=== PATIENT | female | born 1935 | race Caucasian/White ===

== ENCOUNTER → 2022-02-28 14:04 | Outpatient (POV) | payer SELFPAY | PROVIDERS: Visit Provider Internal Medicine Nephrology | DX: Z00.00 Encounter for general adult medical examination without abnormal findings (principal) ==

== ENCOUNTER → 2022-05-30 13:02 | Outpatient (POV) | payer MEDICARE, MEDICAID, SELFPAY ==
[2022-05-30 13:56] LABS: Microscopic, Urine URINE MICROSCOPIC (MICROSCOPIC)
[2022-05-30 14:25] LABS: Hematocrit 36.2 % (37.0-47.0); Hemoglobin 11.2 g/dL (12.2-16.2); Mean Corpuscular HGB Conc 30.9 g/dL (31.8-35.4); Mean Corpuscular Hemoglobin 32.1 pg (27.0-31.2); Mean Corpuscular Volume 103.9 fl (81-99); Platelet Count 220 K/mm3 (142-424); Red Blood Count 3.48 M/mm3 (4.20-5.40); Red Cell Distribution Width 14.8 % (11.5-17.5)
[2022-05-30 14:41] LABS: Chloride 103 mmol/L (98-107); Potassium 4.7 mmoL/L (3.5-5.1); Sodium 142 mmol/L (136-145)
[2022-05-30 14:44] LABS: Anion Gap 12.7 mEq/L (5-15); Blood Urea Nitrogen 38 mg/dl (7-17); Calcium 9.4 mg/dl (8.4-10.2); Carbon Dioxide 31 mmol/L (22.0-30.0); Estimated Glomerular Filt Rate 33 ml/min (>60); GFR (African American) 40 ML/MIN (>60); Glucose 118 mg/dl (74-100); Phosphorous 3.8 mg/dl (2.5-4.5)
[2022-05-30 15:21] LABS: Appearance,Urine CLEAR (Clear); Bilirubin,Urine Negative (Negative); Blood, Urine Negative (Negative); Color,Urine YELLOW (Yellow); Glucose,Urine (UA) Negative (Negative); Ketones,Urine Negative (Negative); Leukocyte Esterase,Urine Negative (Negative); Nitrate,Urine Negative (Negative); Protein,Urine Negative (Negative); Urobilinogen,Urine 0.2 EU/dl (0.2)
[2022-05-30 15:30] LABS: Creatinine,Urine Random 60 mg/dL (Not Estab.)
[2022-05-30 15:35] LABS: Bacteria,Urine 2+ /lpf; Squamous Epithelial Cell,Urine Occasional #/hpf (0-5); WBC,Urine Occasional #/hpf (0-3)
== END ==
PROVIDERS: Visit Provider Internal Medicine Nephrology
DX: N18.32 Chronic kidney disease, stage 3b (principal); B96.29 Other Escherichia coli [E. coli] as the cause of diseases classified elsewhere; R82.90 Unspecified abnormal findings in urine
CPT/HCPCS: 36415; 80069; 81001; 82570; 84155; 85007; 85014; 85018; 85048; 85049; 87086; 87088; 87186

== ENCOUNTER → 2023-02-03 16:45 | Outpatient (POV) | payer MEDICARE, MEDICAID, SELFPAY | PROVIDERS: Visit Provider Internal Medicine Nephrology | DX: Z00.00 Encounter for general adult medical examination without abnormal findings (principal) ==

== ENCOUNTER → 2023-05-01 12:22 | Outpatient (POV) | payer MEDICARE, MEDICAID, SELFPAY | PROVIDERS: Visit Provider Internal Medicine Nephrology | DX: Z00.00 Encounter for general adult medical examination without abnormal findings (principal) ==

== ENCOUNTER 2024-01-05 14:06 | Outpatient (POV) | payer MEDICARE, MEDICAID, SELFPAY ==
--- OUTSIDE RECORDS SUMMARY | 2024-01-05 14:42 | XMS_ITS | Continuity of Care Document ---
Author Name Unknown Address [address] [place] [address] [phone] Organization [facility] Phone Care Team Providers Care Merchandise Shopper Name Role Phone ED RILEY Primary Care FORD POSADA Primary Attending FORD POSADA Unavailable FORD POSADA Admitting ALLERGIES AND ADVERSE REACTIONS ALLERGIES AND ADVERSE REACTIONS Code System Allergy Substance Adverse Reaction Date Reaction (Severity) Comment Status Reported By [place] [id number] SNOMED CT PENICILLINS Adverse reaction to substance Not Specified active [id number] on June 30, 2023 7:33:05 PM [facility] 2670 RXNorm CODEINE Adverse reaction to substance Not Specified active [id number] on June 30, 2023 7:33:05 PM [facility] FAMILY HISTORY RELATION: Father Status: Cause of : Myocardial disease Age at : 50 SNOMED-CT Diagnosis Age At Onset Information not available RELATION: Mother Status: Cause of : Intracranial tumor Age at : 81 SNOMED-CT Diagnosis Age At Onset Information not available RESULTS Patient: DEBI CARTER Date of : [birth year] LABORATORY RESULTS ORDER 200: CBC AUTO NO DIFF HEMOGRAM (LOINC: 43905-2) ORDER DATE: January 01, 2024 3:04:00 PM [facility] Specimen Source: Whole Blood Specimen Type: Whole blood s ample PERFORMING LAB: [address] [id number] Result Comment: Final Result Date: January 01, 2024 3:28:00 PM [facility] (TECH: HC) LOINC TEST FLAG RESULT REFERENCE RANGE UPDA ELIO BY 6690-2 Leukocytes [#/volume] in Blood by Automated count N 9.1 10^3/uL 4.5 10^3/uL - 11.5 10^3/uL January 01, 2024 3:28:00 PM UTC (TECH: [employer]) 789-8 Erythrocytes [#/volume] in Blood by Automated count L 2.83 10^6/uL 4.25 10^6/uL - 5.57 10^6/uL January 01, 2024 3:28:00 PM UTC (TECH: [employer]) 718-7 Hemoglobin [Mass/volume] in Blood LL 7.1 g/dL 12.0 g/dL - 15.7 g/dL January 01, 2024 3:28:00 PM UTC (TECH: [employer]) 82360-8 Hematocrit [Volume Fraction] of Blood LL 24.2 % 36.0 % - 47.0 % January 01, 2024 3:28:00 PM UTC (TECH: [employer]) 787-2 Erythrocyte mean corpuscular volume [Entitic volume] by Automated count N 85.5 fl 80 fl - 95 fl January 01, 2024 3:28:00 PM UTC (Sudiksha: VenJuvo) 56670-2 Erythrocyte mean corpuscular hemoglobin [Entitic mass] in Blood from Fetus by Automated count L 25.1 pg 27.0 pg - 34.0 pg January 01, 2024 3:28:00 PM UTC (Sudiksha: Ven[employer]) 42311-1 Erythrocyte mean corpuscular hemoglobin concentration [Mass/volume] in Blood from Fetus by Automated count L 29.3 g/dL 32.0 g/dL - 36.0 g/dL January 01, 2024 3:28:00 PM UTC (TECH: [employer]) 58376-7 Platelets [#/volume] in Blood N 276 10^3/uL 150 10^3/uL - 450 10^3/uL January 01, 2024 3:28:00 PM UTC (Sudiksha: VenJuvo) 73398-7 Erythrocyte distribution width [Ratio] H 19.4 % 12.3 % - 15.1 % January 01, 2024 3:28:00 PM UTC (TECH: VenJuvo) 38601-3 Platelet mean volume [Entitic volume] in Blood by Automated count N 10.2 fl 7.4 fl - 10.4 fl January 01, 2024 3:28:00 PM UTC (TECH: VenJuvo) ORDER 300: VITAMIN D3 25-OH (LOINC: 1988-10) ORDER DATE: January 01, 2024 3:04:00 PM UTC Specimen Source: Serum/Plasm a Specimen Type: Acellular blo od (serum or plasma) specimen PERFORMING LAB: [address] [id number] Result Comment: January 02, 2024 3:14:00 PM UTC Vitamin D deficiency has been defined by the [place] of Result Comment: January 02, 2024 3:14:00 PM [facility] Medicine and an Endocrine Society practice guideline as a Result Comment: January 02, 2024 3:14:00 PM UTC level of serum 25-OH vitamin D less than 20 ng/mL (1,2). Result Comment: January 02, 2024 3:14:00 PM UTC The Endocrine Society went on to further define vitamin D Result Comment: January 02, 2024 3:14:00 PM UTC insufficiency as a level between 21 and 29 ng/mL (2). Result Comment: January 02, 2024 3:14:00 PM UTC 1. IOM ([place] of Medicine). 2010. Dietary reference Result Comment: January 02, 2024 3:14:00 PM [facility] intakes for calcium and D. [facility]: The Result Comment: January 02, 2024 3:14:00 PM [facility] National [employer]. Result Comment: January 02, 2024 3:14:00 PM UTC 2. Sherrie MF, Karime NC, Keshav SMITH, et al. Result Comment: January 02, 2024 3:14:00 PM UTC Evaluation, treatment, and prevention of vitamin D Result Comment: January 02, 2024 3:14:00 PM UTC deficiency: an Endocrine Society clinical practice Result Comment: January 02, 2024 3:14:00 PM [place] guideline. JCEM. 2010; 96(7):1911-30. Result Comment: January 02, 2024 3:14:00 PM UTC Performed at: [facility] Result Comment: January 02, 2024 3:14:00 PM UTC [address], [place] [id number] Result Comment: January 02, 2024 3:14:00 PM UTC [employer] C[employer]: Syd Pickett PhD, Phone: [phone] Result Comment: January 02, 2024 3:14:00 PM UTC Final Result Date: January 02, 2024 3:05:00 PM UTC (TECH: LAB) LOINC TEST FLAG RESULT REFERENCE RANGE UPDA ELIO BY 1989-3 Calcidiol [Mass/volume] in Serum or Plasma N 78.7 ng/mL 30.0 ng/mL - 100.0 ng/mL January 02, 2024 3:05:00 PM UTC (TECH: LAB) ORDER 400: RENAL FUNCTION PA JOHN (LOINC: 70983-8) ORDER DATE: January 01, 2024 3:04:00 PM [facility] Specimen Source: Serum/Plasm a Specimen Type: Acellular blo od (serum or plasma) specimen PERFORMING LAB: [address] [id number] Result Comment: Final Result Date: January 01, 2024 4:10:00 PM [facility] (TECH: MRB) LOINC TEST FLAG RESULT REFERENCE RANGE UPDA ELIO BY 2951-2 Sodium [Moles/volume] in Serum or Plasma N 143 mmol/L 136 mmol/L - 145 mmol/L January 01, 2024 4:10:00 PM UTC (TECH: MRB) 2823-3 Potassium [Moles/volume] in Serum or Plasma N 4.0 mmol/L 3.5 mmol/L - 5.1 mmol/L January 01, 2024 4:10:00 PM UTC (TECH: MRB) 2075-0 Chloride [Moles/volume] in Serum or Plasma N 105 mmol/L 98 mmol/L - 107 mmol/L January 01, 2024 4:10:00 PM UTC (TECH: MRB) 8-9 Carbon dioxide, total [Moles/volume] in Serum or Plasma N 28 mmol/L 21 mmol/L - 32 mmol/L January 01, 2024 4:10:00 PM UTC (TECH: MRB) 2345-7 Glucose [Mass/volume] in Serum or Plasma N 89 mg/dL 70 mg/dL - 110 mg/dL January 01, 2024 4:10:00 PM UTC (TECH: MRB) 3094-0 Urea nitrogen [Mass/volume] in Serum or Plasma H 37 mg/dL 7 mg/dL - 18 mg/dL January 01, 2024 4:10:00 PM UTC (TECH: MRB) 2160-0 Creatinine [Mass/volume] in Serum or Plasma H 1.6 mg/dL 0.6 mg/dL - 1.0 mg/dL January 01, 2024 4:10:00 PM UTC (TECH: MRB) 39096-4 Glomerular filtration rate/1.73 sq M.predicted by Creatinine-based formula (MDRD) L 32 mL/min >60 January 01, 2024 4:10:00 PM UTC (TECH: MRB) 1751-7 Albumin [Mass/volume] in Serum or Plasma N 3.8 g/dL 3.4 g/dL - 5.0 g/dL January 01, 2024 4:10:00 PM UTC (TECH: MRB) 65816-5 Calcium [Mass/volume] in Serum or Plasma N 9.3 mg/dL 8.5 mg/dL - 10.1 mg/dL January 01, 2024 4:10:00 PM UTC (TECH: MRB) 38008-6 Calcium [Mass/volume] corrected for total protein in Serum or Plasma N 9.5 mg/dL 8.5 mg/dL - 10.1 mg/dL January 01, 2024 4:10:00 PM UTC (TECH: MRB) 2777-1 Phosphate [Mass/volume] in Serum or Plasma N 3.4 mg/dL 2.5 mg/dL - 4.9 mg/dL January 01, 2024 4:10:00 PM UTC (TECH: MRB) ORDER 500: PROTEIN/CREATININ E URINE (LOINC: 2890-2) ORDER DATE: January 01, 2024 3:04:00 PM UTC Specimen Source: URINE Specimen Type: Urine specime n PERFORMING LAB: [address] [id number] Result Comment: Final Result Date: January 01, 2024 3:48:00 PM UTC (TECH: HC) LOINC TEST FLAG RESULT REFERENCE RANGE UPDA ELIO BY 2888-6 Protein [Mass/volume] in Urine N 11 mg/dL 0.0 mg/dL - 15.0 mg/dL January 01, 2024 3:48:00 PM UTC (TECH: HC) 2161-8 Creatinine [Mass/volume] in Urine N 55.2 mg/dL 30 mg/dL - 125 mg/dL January 01, 2024 3:48:00 PM UTC (TECH: HC) 2890-2 Protein/Creatinine [Mass Ratio] in Urine N 199 Ratio 0 Ratio - 200 Ratio January 01, 2024 3:48:00 PM UTC (TECH: HC) ORDER 600: UA AND MICRO/CULT IF INDICATED (LOINC: 55011-2) ORDER DATE: January 01, 2024 3:04:00 PM UTC Specimen Source: URINE Specimen Type: Urine specime n PERFORMING LAB: [address] [id number] Result Comment: Final Result Date: January 01, 2024 3:52:00 PM UTC (TECH: HC) LOINC TEST FLAG RESULT REFERENCE RANGE UPDA ELIO BY 5778-6 Color of Urine N yellow YELLOW December 3:52:00 PM UTC (TECH: HC) 5767-9 Appearance of Urine N clear CLEAR January 01, 2024 3:52:00 PM UTC (TECH: HC) 5792-7 Glucose [Mass/volume] in Urine by Test strip N NORM NORMAL January 01, 2024 3:52:00 PM UTC (TECH: HC) 55550-0 Bilirubin.total [Mass/volume] in Urine by Automated test strip N NEGATIVE NEGATIVE January 01, 2024 3:52:00 PM UTC (TECH: HC) 5797-6 Ketones [Mass/volume] in Urine by Test strip N NEGATIVE NEGATIVE January 01, 2024 3:52:00 PM UTC (TECH: HC) 2965-2 Specific gravity of Urine N 1.010 1.005 - 1.035 January 01, 2024 3:52:00 PM UTC (TECH: HC) 58310-5 Erythrocytes [#/volume] in Urine by Automated test strip N NEGATIVE NEGATIVE January 01, 2024 3:52:00 PM UTC (TECH: HC) 55177-8 pH of Urine by Automated test strip N 5.00 5.0 - 7.5 January 01, 2024 3:52:00 PM UTC (TECH: HC) 47424-3 Protein [Presence] in Urine by Test strip N NEGATIVE NEGATIVE January 01, 2024 3:52:00 PM UTC (TECH: HC) 29022-5 Urobilinogen [Mass/volume] in Urine by Automated test strip N NORM NORMAL January 01, 2024 3:52:00 PM UTC (TECH: HC) 64582-8 Nitrate [Presence] in Urine N NEGATIVE NEGATIVE January 01, 2024 3:52:00 PM UTC (TECH: HC) 56695-0 Leukocytes [#/volume] in Urine by Test strip N 100 (1+) /mcL NEGATIVE January 01, 2024 3:52:00 PM UTC (TECH: HC) 33332-0 Other elements in Urine sediment N CONTAMINATED January 01, 2024 3:52:00 PM UTC (TECH: HC) 88208-3 Microscopic observation [Identifier] in Urine sediment by Light microscopy N YES January 01, 2024 3:52:00 PM UTC (TECH: HC) 63313-4 Erythrocytes [#/area] in Urine sediment by Microscopy high power field N NONE SEEN 0-3 January 01, 2024 3:52:00 PM UTC (TECH: HC) 5821-4 Leukocytes [#/area] in Urine sediment by Microscopy high power field 10-20 NONE SEEN January 01, 2024 3:52:00 PM UTC (TECH: HC) 25227-9 Epithelial cells.squamous [#/area] in Urine sediment by Microscopy high power field 10-20 NONE SEEN January 01, 2024 3:52:00 PM UTC (TECH: HC) 5769-5 Bacteria [#/area] in Urine sediment by Microscopy high power field N TRACE NONE SEEN January 01, 2024 3:52:00 PM UTC (TECH: HC) 05245-9 Mucus [#/area] in Urine sediment by Microscopy low power field N NONE SEEN NONE SEEN January 01, 2024 3:52:00 PM UTC (TECH: HC) 8246-1 Amorphous sediment [Presence] in Urine sediment by Light microscopy N NEGATIVE NONE SEEN January 01, 2024 3:52:00 PM UTC (TECH: HC) ORDER 700: PTH INTACT (LOINC : 2731-8) ORDER DATE: January 01, 2024 3:04:00 PM UTC Specimen Source: Plasma Specimen Type: Plasma specim en PERFORMING LAB: [address] [id number] Result Comment: January 02, 2024 4:11:00 PM UTC Performed at: [facility] Result Comment: January 02, 2024 4:11:00 PM UTC [address], [place] [id number] Result Comment: January 02, 2024 4:11:00 PM [facility] Quartz Cutter: Syd Pickett PhD, Phone: [phone] Result Comment: January 02, 2024 4:11:00 PM [facility] Final Result Date: January 02, 2024 3:05:00 PM [facility] (TECH: LAB) LOINC TEST FLAG RESULT REFERENCE RANGE UPDA ELIO BY 2731-8 Parathyrin.intact [Mass/volume] in Serum or Plasma N 38 pg/mL 15 pg/mL - 65 pg/mL January 02, 2024 3:05:00 PM [facility] (TECH: LAB) LABORATORY NARRATIVE RESULTS Information is not available RADIOLOGY RESULTS Information is not available PATHOLOGY NARRATIVE RESULTS Information is not available MICROBIOLOGY RESULTS No Micro Labs/Results Exist for Patient BLOOD ADMIN RESULTS Information is not available MEDICATIONS HOME MEDICATIONS Status RXNORM NDC Medication Dose Route Frequency Dates Comments Reported By Updated By Drug Treatment Unknown DISCHARGE MEDICATIONS Status RXNORM NDC Medication Dose Route Frequency Dates Comments Physician Updated By No Discharge Medication Info rmation Available INPATIENT MEDICATIONS Status RXNORM NDC Medication Dose Route Frequency Rat e Quantity Dates Comments Physician Updated By No Inpatient Medication Info rmation Available SOCIAL HISTORY SOCIAL HISTORY SNOMED-CT Social History Element Description Effective Dates Offered Cessation Comment UpdatedBy [id number] Historical Tobacco smoking status Former Smoker [id number] on July 01, 2018 6:05:19 PM [facility] [id number] Historical Tobacco smoking status Never Smoked Not Applicable [id number] on September 17, 2015 3:55:48 PM [facility] SOCIAL HISTORY - Gender Sex: Female SOCIAL HISTORY - Status : status i nformation is not available Intention in Next Year: intention information is not available SOCIAL HISTORY - Sexual Behavior Sexual Orientation Gender Identity SNOMED-CT Description SNO MED -CT Description Activity Level No of Partners Partner Type UpdatedBy Information is not available HEALTH CONCERNS Problems Concern Status Health Concern problem infor mation not available. Smoking Status Status Years Used Consumed packs p er day Health Concern smoking histo ry information not available. Family History Concern Status Health Concern family histor y information not available. ENCOUNTERS ENCOUNTER INFORMATION Reason for Visit N18.4 Admission January 01, 2024 2:54:[address] [address] Discharge January 01, 2024 2:54:00 PM [facility] DISCH ARGED TO HOME OR SELF CARE ENCOUNTER DIAGNOSES Notes information is not tamra ilable. Code System Diagnosis Onset Date Diagnosis information is not available. ABSTRACT DIAGNOSES Code System Diagnosis Updated By N18.4 ICD10 CHRONIC KIDNEY D ISEASE, STAGE 4 (SEVERE) [id number] on January 02, 2024 3:01:15 PM UTC N18.4 ICD10 CHRONIC KIDNEY D ISEASE, STAGE 4 (SEVERE) [id number] on January 02, 2024 3:01:18 PM [facility] CARE TEAM Care Merchandise Shopper Role ED RILEY Primary Care FORD POSADA Primary Attending FORD POSADA Referring FORD POSADA Admitting CARE TEAM CARE flavor maker Role on Team Status Start Date End Date Update d By ALBINO Reed MD Referring normal December 31 4:00:00 AM UT January 01, 2024 4:00:00 AM UTC [id number] on January 01, 2024 2:56:53 PM UT ALBINO Reed MD Attending normal December 31 4:00:00 AM UT January 01, 2024 4:00:00 AM UTC [id number] on January 01, 2024 2:56:53 PM UT ALBINO Reed MD Admitting normal December 31 4:00:00 AM UT January 01, 2024 4:00:00 AM UTC [id number] on January 01, 2024 2:56:53 PM UT ROSEMARY ELLIOTT PCP normal January 01, 2024 4:00:00 AM UT January 01, 2024 4:00:00 AM UTC [id number] on January 01, 2024 2:56:53 PM [facility]
--- OUTSIDE RECORDS SUMMARY | 2024-01-05 14:42 | XMS_ITS | Continuity of Care Document ---
Author Name Unknown Address [address] [place] [phone] Organization [facility] Phone Care Team Providers Care Battery Container Inspector Name Role Phone ED RILEY Primary Care FORD POSADA Primary Attending FORD POSADA Unavailable FORD POSADA Admitting ALLERGIES AND ADVERSE REACTIONS ALLERGIES AND ADVERSE REACTIONS Code System Allergy Substance Adverse Reaction Date Reaction (Severity) Comment Status Reported By [place] [id number] SNOMED CT PENICILLINS Adverse reaction to substance Not Specified active [id number] on June 30, 2023 7:33:05 PM [facility] 2670 RXNorm CODEINE Adverse reaction to substance Not Specified active [id number] on June 30, 2023 7:33:05 PM [facility] FAMILY HISTORY RELATION: Father Status: Cause of : Myocardial disease Age at : 50 SNOMED-CT Diagnosis Age At Onset Information not available RELATION: Mother Status: Cause of : Intracranial tumor Age at : 81 SNOMED-CT Diagnosis Age At Onset Information not available RESULTS Patient: DEBI CARTER Date of : May [birth year] LABORATORY RESULTS ORDER 200: CBC AUTO NO DIFF HEMOGRAM (LOINC: 72940-6) ORDER DATE: January 01, 2024 3:04:00 PM [facility] Specimen Source: Whole Blood Specimen Type: Whole blood s ample PERFORMING LAB: [address] [id number] Result Comment: Final Result Date: January 01, 2024 3:28:00 PM [facility] (TECH: HC) LOINC TEST FLAG RESULT REFERENCE RANGE UPDA ELIO BY 6690-2 Leukocytes [#/volume] in Blood by Automated count N 9.1 10^3/uL 4.5 10^3/uL - 11.5 10^3/uL January 01, 2024 3:28:00 PM UTC (TECH: [employer] 789-8 Erythrocytes [#/volume] in Blood by Automated count L 2.83 10^6/uL 4.25 10^6/uL - 5.57 10^6/uL January 01, 2024 3:28:00 PM UTC (TECH: [employer] 718-7 Hemoglobin [Mass/volume] in Blood LL 7.1 g/dL 12.0 g/dL - 15.7 g/dL January 01, 2024 3:28:00 PM UTC (TECH: [employer] 37770-5 Hematocrit [Volume Fraction] of Blood LL 24.2 % 36.0 % - 47.0 % January 01, 2024 3:28:00 PM UTC (TECH: [employer] 787-2 Erythrocyte mean corpuscular volume [Entitic volume] by Automated count N 85.5 fl 80 fl - 95 fl January 01, 2024 3:28:00 PM UTC (TECH: [employer] 54572-9 Erythrocyte mean corpuscular hemoglobin [Entitic mass] in Blood from Fetus by Automated count L 25.1 pg 27.0 pg - 34.0 pg January 01, 2024 3:28:00 PM UTC (TECH: [employer] 15639-6 Erythrocyte mean corpuscular hemoglobin concentration [Mass/volume] in Blood from Fetus by Automated count L 29.3 g/dL 32.0 g/dL - 36.0 g/dL January 01, 2024 3:28:00 PM UTC (TECH: [employer] 48268-3 Platelets [#/volume] in Blood N 276 10^3/uL 150 10^3/uL - 450 10^3/uL January 01, 2024 3:28:00 PM UTC (TECH: [employer] 63329-4 Erythrocyte distribution width [Ratio] H 19.4 % 12.3 % - 15.1 % January 01, 2024 3:28:00 PM UTC (TECH: [employer] 45047-9 Platelet mean volume [Entitic volume] in Blood by Automated count N 10.2 fl 7.4 fl - 10.4 fl January 01, 2024 3:28:00 PM UTC (TECH: [employer] ORDER 500: PROTEIN/CREATININ E URINE (LOINC: 2890-2) ORDER DATE: January 01, 2024 3:04:00 PM UTC Specimen Source: URINE Specimen Type: Urine specime n PERFORMING LAB: [address] [id number] Result Comment: Final Result Date: January 01, [...] 600: UA AND MICRO/CULT IF INDICATED (LOINC: 56041-3) ORDER DATE: January 01, 2024 3:04:00 PM UTC Specimen Source: URINE Specimen Type: Urine specime n PERFORMING LAB: [address] [id number] Result Comment: Final Result Date: January 01, 2024 3:52:00 PM UTC (TECH: HC) LOINC TEST FLAG RESULT REFERENCE RANGE UPDA ELIO BY 5778-6 Color of Urine N yellow YELLOW December 3:52:00 PM UTC (TECH: HC) 5767-9 Appearance of Urine N clear CLEAR January 01, 2024 3:52:00 PM UTC (TECH: HC) 5792-7 Glucose [Mass/volume ] in Urine by Test strip N NORM NORMAL January 01, 2024 3:52:00 PM UTC (TECH: HC) 63789-1 Bilirubin.total [Mass/volume] in Urine by Automated test strip N NEGATIVE NEGATIVE December 31, 2 024 3:52:00 PM UTC (TECH: HC) 5797-6 Ketones [Mass/volume ] in Urine by Test strip N NEGATIVE NEGATIVE January 01, 2024 3:52:00 PM UTC (TECH: HC) 2965-2 Specific gravity of Urine N 1.010 1.005 - 1.035 January 01, 2024 3:52:00 PM UTC (TECH: [employer] 25293-9 Erythrocytes [#/volu me] in Urine by Automated test strip N NEGATIVE NEGATIVE January 01, 2024 3:52:00 PM UTC (TECH: [employer] 89250-7 pH of Urine by Autom ated test strip N 5.00 5.0 - 7.5 January 01, 2024 3:52:00 PM UTC (TECH: HC) 13263-3 Protein [Presence] i n Urine by Test strip N NEGATIVE NEGATIVE January 01, 2024 3:52:00 PM UTC (TECH: HC) 22904-0 Urobilinogen [Mass/volume] in Urine by Automated test strip N NORM NORMAL December 31 024 3:52:00 PM UTC (TECH: HC) 19960-8 Nitrate [Presence] i n Urine N NEGATIVE NEGATIVE January 01, 2024 3:52:00 PM UTC (TECH: HC) 92613-5 Leukocytes [#/volume ] in Urine by Test strip N 100 (1+) /mcL NEGATIVE January 01, 2024 3:52:00 PM UTC (TECH: [employer] 22024-2 Other elements in Ur ine sediment N CONTAMINATED January 01, 2024 3:52:00 PM UTC (TECH: [employer] 51600-4 Microscopic observat ion [Identifier] in Urine sediment by Light microscopy N YES January 01, 2024 3:52:00 PM UTC (TECH: [employer] 64771-7 Erythrocytes [#/area ] in Urine sediment by Microscopy high power field N NONE SEEN 0-3 January 01, 2024 3:52:00 PM UTC (TECH: [employer] 5821-4 Leukocytes [#/area] in Urine sediment by Microscopy high power field 10-20 NONE SEEN January 01, 2024 3:52:00 PM UTC (TECH: HC) 29440-3 Epithelial cells.squamous [#/area] in Urine sediment by Microscopy high power field 10-20 NONE SEEN January 01, 2024 3:52:00 PM UTC (TECH: HC) 5769-5 Bacteria [#/area] in Urine sediment by Microscopy high power field N TRACE NONE SEEN January 01, 2024 3:52:00 PM UTC (TECH: [employer] 45841-9 Mucus [#/area] in Ur ine sediment by Microscopy low power field N NONE SEEN NONE SEEN January 01, 2024 3:52:00 PM [facility] (TECH: ) 8246-1 Amorphous sediment [Presence] in Urine sediment by Light microscopy N NEGATIVE NONE SEEN January 01, 2024 3:52:00 PM [facility] (TECH: [employer] LABORATORY NARRATIVE RESULTS Information is not available RADIOLOGY RESULTS Information is not available PATHOLOGY NARRATIVE RESULTS Information is not available MICROBIOLOGY RESULTS No Micro Labs/Results Exist for Patient BLOOD ADMIN RESULTS Information is not available TREATMENT PLAN DISCHARGE MEDICATIONS Status RXNORM Medication Dose Route Frequency Dates Comments U pdated By Patient discharge medication information is not available. PATIENT OPEN ORDERS Code System Description Frequency Occurrences Priority Start Date Ordering Physician Updated By 1988-10 LOINC Calcidiol [Mass/volume] in Serum or Plasma ONE TIME 0 Routine January 01, 2024 3:03:00 PM [facility] ALBINO Reed MD [id number] on January 01, 2024 3:04:00 PM [facility] 54132-6 LOINC Renal function 2000 panel - Serum or Plasma ONE TIME 0 Routine January 01, 2024 3:03:00 PM [facility] ALBINO Reed MD [id number] on January 01, 2024 3:04:00 PM [facility] 2731-8 LOINC Parathyrin.in tact [Mass/volume] in Serum or Efrem ONE TIME 0 Routine January 01, 2024 3:03:00 PM [facility] ALBINO Reed MD [id number] on January 01, 2024 3:04:00 PM [facility] SCHEDULED PROCEDURES Code System Description Status Scheduled Date Upd ated By Patient scheduled procedure information is not available. MEDICATIONS HOME MEDICATIONS Status RXNORM NDC Medication [...] Description Effective Dates Offered Cessation Comment UpdatedBy [id number] Historical Tobacco smoking status Former Smoker [id number] on July 01, 2018 6:05:19 PM [facility] [id number] Historical Tobacco smoking status Never Smoked Not Applicable [id number] on September 17, 2015 3:55:48 PM [facility] SOCIAL HISTORY - Gender Sex: Female SOCIAL [...] N18.4 Admission January 01, 2024 2:54:[address] [address] Discharge January 01, 2024 2:54:00 PM [facility] DISCH ARGED TO HOME OR SELF CARE ENCOUNTER DIAGNOSES Notes information is not tamra ilable. Code System Diagnosis Onset Date Diagnosis information is not available. ABSTRACT DIAGNOSES Code System Diagnosis Updated By Abstract Diagnosis informati on is not available. CARE TEAM Care Battery Container Inspector Role ED RILEY Primary Care FORD POSADA Primary Attending FORD POSADA Referring FORD POSADA Admitting CARE TEAM CARE housing inspectors Role on Team Status Start Date End Date Update d By ALBINO Reed MD Referring normal December 31 4:00:00 AM [facility] January 01, 2024 2:54:00 PM [facility] [id number] on January 01, 2024 2:56:53 PM [facility] ALBINO Reed MD Attending normal December 31 4:00:00 AM [facility] January 01, 2024 2:54:00 PM [facility] [id number] on January 01, 2024 2:56:53 PM [facility] ALBINO Reed MD Admitting normal December 31 4:00:00 AM [facility] January 01, 2024 2:54:00 PM [facility] [id number] on January 01, 2024 2:56:53 PM [facility] ROSEMARY ELLIOTT PCP normal January 01, 2024 4:00:00 AM [facility] January 01, 2024 2:54:00 PM [facility] [id number] on January 01, 2024 2:56:53 PM [facility]
== END 2024-01-05 23:59 | disposition home or self-care (01) ==
LOC: SC 14:41
PROVIDERS: Visit Provider Internal Medicine Nephrology
DX: Z00.00 Encounter for general adult medical examination without abnormal findings (principal)

== ENCOUNTER 2024-01-05 15:09 | Emergency (ER) | payer MEDICARE, MEDICAID, SELFPAY ==
[2024-01-05 15:11] VITALS: BP 135/69; PULSE 89; RESP 20; TEMP 36.6; O2SAT 96; BMI 37.9
--- NOTE | 2024-01-05 15:38 | HMH.EDGENADL ---
Discharge Plan Disposition Patient Disposition: Home, Self-Care Condition: Good Referrals Follow up/Referrals: Provider,Referral, MD [Primary Care Provider] - See instructions Activity Restrictions/Add. Instructions Additional Instructions/Restrictions: Patient to follow-up with the infusion center tomorrow for transfusion of 1 PRBC. Patient to follow-up with PCP and administrative services coordinator as scheduled. Clinical Impressions Clinical Impression: Anemia due to chronic kidney disease Qualifiers: Chronic kidney disease stage: unspecified stage Qualified Code(s): N18.9 - Chronic kidney disease, unspecified Iron (Fe) deficiency anemia Qualifiers: Iron deficiency anemia type: unspecified iron deficiency Qualified Code(s): D50.9 - Iron deficiency anemia, unspecified Discharge ED Provider: Jose Main Adult HPI <HENOK Salinas - Last Filed: 01/05/24 18:28> General Chief complaint: Recheck/Abnormal Lab/Rx Stated complaint: Hb 7, anemia Time Seen by Provider: 01/05/24 15:38 History of Present Illness HPI narrative: Patient sent to the emergency department by her administrative services coordinator for abnormal lab results. Patient has chronic kidney disease and had a virtual visit with Dr. Ricky Lopez via telemedicine here at [facility] today. Lab results done in preparation of that visit showed that she had a reportedly low hemoglobin. Unfortunately we have no records to review of this patient for any previous data. Dr. Lopez sent the patient to the ER and per the patient and her daughter for a blood transfusion . Patient herself is denying any chest pain shortness of breath fever chills hemoptysis hematochezia melena hematemesis hematuria. Patient does have a past medical history of heart problems , hypothyroidism, chronic kidney disease, presbycusis. Related Data Allergies Allergy/AdvReac Type Severity Reaction Status Date / Time codeine Allergy Verified 01/05/24 16:06 Penicillins Allergy Verified 01/05/24 16:06 PFSH <HENOK Salinas - Last Filed: 01/05/24 18:28> [facility] Disclaimer: The information contained in this section may have been updated after the patient was seen, as this information can be updated by other users. Social History (Updated 01/05/24 @ 18:28 by HENOK Salinas) Smoking Status: Former smoker alcohol intake: never current occupational status: retired Travel in the last 8 weeks: None <HENOK Salinas - Last Filed: 01/05/24 18:28> ROS Obtained: Yes Systems reviewed as appropriate & no additional complaints except as documented Physical Exam <HENOK Salinas - Last Filed: 01/05/24 18:28> General General appearance: alert Respiratory Respiratory exam: Present normal lung sounds bilaterally Cardiovascular Cardiovascular exam: Present regular rate, normal rhythm, normal heart sounds, +S1 and +S2 Extremities Exam Extremities exam: Present normal inspection, full ROM and edema (3+ bilateral dependent edema to the knees) Neurological Exam Neurological exam: Present alert, oriented X3 and CN II-XII intact Medical Decision Making <HENOK Salinas - Last Filed: 01/05/24 18:28> Medical Records Medical records reviewed: Yes I reviewed the patient's medical records. Jeremi Inquiry Pt receiving controlled substance: No Vital Signs: 01/05/24 15:11 01/05/24 16:31 01/05/24 17:01 Temperature 97.8 F Temperature Source Oral Pulse Rate 71 75 Pulse Rate [Right Radial] 89 Respiratory Rate 20 Blood Pressure 128/58 L 127/61 Blood Pressure [Right Arm] 135/69 Blood Pressure Mean 81 84 Blood Pressure Mean [Right Arm] 91 Blood Pressure Source Blood Pressure Source [Right Arm] Automatic Cuff Blood Pressure Position Blood Pressure Position [Right Arm] Supine 02 Sat by Pulse Oximetry 96 96 95 Oxygen Delivery Method Room Air 01/05/24 17:31 01/05/24 18:00 01/05/24 18:29 Temperature 98.8 F 98.8 F Temperature Source Oral Oral Pulse Rate 70 76 Pulse Rate [Right Radial] 81 Respiratory Rate 20 18 Blood Pressure 130/59 L 140/75 Blood Pressure [Right Arm] 142/78 H Blood Pressure Mean Blood Pressure Mean [Right Arm] 99 Blood Pressure Source Automatic Cuff Blood Pressure Source [Right Arm] Automatic Cuff Blood Pressure Position Supine Blood Pressure Position [Right Arm] Sitting 02 Sat by Pulse Oximetry 96 94 L Oxygen Delivery Method Room Air Room Air Room Air Lab Data Lab results reviewed: Yes I reviewed the patient's lab results. Lab Results 01/05/24 15:44: WBC 9.7, RBC 2.83 L, Hgb 7.3 L, Hct 24.9 L, MCV 87.8, MCH 25.8 L, MCHC 29.4 L, RDW 19.6 H, Plt Count 268, MPV 8.0, Neut % (Auto) 76.9, Lymph % (Auto) 15.6, Candler % (Auto) 5.4, Eos % (Auto) 1.8, Baso % (Auto) 0.2, Neut # (Auto) 7.5, Lymph # (Auto) 1.5, Candler # (Auto) 0.5, Eos # (Auto) 0.2, Baso # (Auto) 0.0, PT 12.1, INR 1.13 H, Sodium 138, Potassium 4.2, Chloride 104, Carbon Dioxide 26, Anion Gap 12.2, BUN 19 H, Creatinine 1.30 H, Estimated Creat Clear 47, Estimated GFR 39 L, Est GFR ( Amer) 47 L, Glucose 107 H, Calcium 9.5, Magnesium 1.7, Iron 40, TIBC 342, Iron Saturation 11.51222 L, Total Bilirubin 1.0, AST 31, ALT 31, Alkaline Phosphatase 98, Troponin I < 0.01, Total Protein 6.6, Albumin 3.9, Globulin 2.7, Albumin/Globulin Ratio 1.4 01/05/24 16:19: Blood Type A Negative, Antibody Screen Positive, Crossmatch ([facility]) See Detail 01/05/24 17:23: Blood Type Confirm A Negative 01/05/24 15:44 01/05/24 15:44 Orders (Tests/Meds): ED MEDICATIONS Discontinued Medications Generic Name Dose Route Start Last Admin Trade Name Freq PRN Reason Stop Dose Admin Sodium Chloride 250 mls @ 25 mls/hr 01/05/24 16:30 Sod Chlor 0.9% 250ml Bag IV 01/06/24 16:29 .Q10H COSME ORDERS Category Date Time Status Antibody Identification Stat [facility] 01/05/24 16:19 Received Blood transfusion [Red Blood Cells] Stat [facility] 01/05/24 16:19 Results Type and Screen Stat [facility] 01/05/24 16:19 Results Chest XR -- portable [XR chest portable] Stat Exams 01/05/24 16:30 Completed CBC w/Auto Diff [Complete Blood Count Auto Diff] Stat Lab 01/05/24 15:44 Completed CMP [Comprehensive Metabolic Panel] Stat Lab 01/05/24 15:44 Completed INR [Prothrombin Time INR] Stat Lab 01/05/24 15:44 Completed Iron and TIBC Stat Lab 01/05/24 15:44 Completed Magnesium Stat Lab 01/05/24 15:44 Completed Trop I [Troponin I] Stat Lab 01/05/24 15:44 Completed Medical Decision Narrative: In summary patient is a 88-year-old female who presents to the emergency department for evaluation of anemia. Patient is hemodynamically stable upon arrival, afebrile. Physical exam is remarkable for 3+ pitting edema in her lower extremities but no chest pain shortness of breath palpitations dyspnea.. Differential diagnosis includes anemia of chronic disease, iron deficiency anemia, GI bleed etc. Initial workup will be conducted with hematologic labs. initial workup reviewed by me does indeed show a hemoglobin less than 8, and iron saturation of 11 chronic kidney disease but the remainder of her hematologic labs are nonactionable and my informal review of her chest x-ray shows no diffuse pulmonary edema does show cardiomegaly. Upon repeat evaluation patient actually has antibodies that have to go to the [facility] blood [place] for type and cross. Given this I had interactive discussion with the patient and her daughter about prescribing a unit of blood at the infusion center in the a.m. and via patient directed decision making they are agreeable with. Patient has no evidence or criteria for decompensation currently that would require admission to wait on the unit of blood. Therefore patient will be discharged home with follow-up in the a.m. at the infusion center for unit of packed red blood cells and then referral back to her PCP and administrative services coordinator. <Jose Main, DO - Last Filed: 01/05/24 23:44> Vital Signs: 01/05/24 15:11 01/05/24 16:31 01/05/24 17:01 Temperature 97.8 F Temperature Source Oral Pulse Rate 71 75 Pulse Rate [Right Radial] 89 Respiratory Rate 20 Blood Pressure 128/58 L 127/61 Blood Pressure [Right Arm] 135/69 Blood Pressure Mean 81 84 Blood Pressure Mean [Right Arm] 91 Blood Pressure Source Blood Pressure Source [Right Arm] Automatic Cuff Blood Pressure Position Blood Pressure Position [Right Arm] Supine 02 Sat by Pulse Oximetry 96 96 95 Oxygen Delivery Method Room Air 01/05/24 17:31 01/05/24 18:00 01/05/24 18:29 Temperature 98.8 F 98.8 F Temperature Source Oral Oral Pulse Rate 70 76 Pulse Rate [Right Radial] 81 Respiratory Rate 20 18 Blood Pressure 130/59 L 140/75 Blood Pressure [Right Arm] 142/78 H Blood Pressure Mean Blood Pressure Mean [Right Arm] 99 Blood Pressure Source Automatic Cuff Blood Pressure Source [Right Arm] Automatic Cuff Blood Pressure Position Supine Blood Pressure Position [Right Arm] Sitting 02 Sat by Pulse Oximetry 96 94 L Oxygen Delivery Method Room Air Room Air Room Air Lab Data Lab Results 01/05/24 15:44: WBC 9.7, RBC 2.83 L, Hgb 7.3 L, Hct 24.9 L, MCV 87.8, MCH 25.8 L, MCHC 29.4 L, RDW 19.6 H, Plt Count 268, MPV 8.0, Neut % (Auto) 76.9, Lymph % (Auto) 15.6, Candler % (Auto) 5.4, Eos % (Auto) 1.8, Baso % (Auto) 0.2, Neut # (Auto) 7.5, Lymph # (Auto) 1.5, Candler # (Auto) 0.5, Eos # (Auto) 0.2, Baso # (Auto) 0.0, PT 12.1, INR 1.13 H, Sodium 138, Potassium 4.2, Chloride 104, Carbon Dioxide 26, Anion Gap 12.2, BUN 19 H, Creatinine 1.30 H, Estimated Creat Clear 47, Estimated GFR 39 L, Est GFR ( Amer) 47 L, Glucose 107 H, Calcium 9.5, Magnesium 1.7, Iron 40, TIBC 342, Iron Saturation 11.73914 L, Total Bilirubin 1.0, AST 31, ALT 31, Alkaline Phosphatase 98, Troponin I < 0.01, Total Protein 6.6, Albumin 3.9, Globulin 2.7, Albumin/Globulin Ratio 1.4 01/05/24 16:19: Blood Type A Negative, Antibody Screen Positive, Crossmatch ([facility]) See Detail 01/05/24 17:23: Blood Type Confirm A Negative Orders (Tests/Meds): ED MEDICATIONS Discontinued Medications Generic Name Dose Route Start Last Admin Trade Name Freq PRN Reason Stop Dose Admin Sodium Chloride 250 mls @ 25 mls/hr 01/05/24 16:30 Sod Chlor 0.9% 250ml Bag IV 01/06/24 16:29 .Q10H COSME ORDERS Category Date Time Status Antibody Identification Stat [facility] 01/05/24 16:19 Received Blood transfusion [Red Blood Cells] Stat [facility] 01/05/24 16:19 Results Type and Screen Stat [facility] 01/05/24 16:19 Results Chest XR -- portable [XR chest portable] Stat Exams 01/05/24 16:30 Completed CBC w/Auto Diff [Complete Blood Count Auto Diff] Stat Lab 01/05/24 15:44 Completed CMP [Comprehensive Metabolic Panel] Stat Lab 01/05/24 15:44 Completed INR [Prothrombin Time INR] Stat Lab 01/05/24 15:44 Completed Iron and TIBC Stat Lab 01/05/24 15:44 Completed Magnesium Stat Lab 01/05/24 15:44 Completed Trop I [Troponin I] Stat Lab 01/05/24 15:44 Completed Medical Decision Narrative: In summary patient is a 88-year-old female who presents to the emergency department for evaluation of anemia. Patient is hemodynamically stable upon arrival, afebrile. Physical exam is remarkable for 3+ pitting edema in her lower extremities but no chest pain shortness of breath palpitations dyspnea.. Differential diagnosis includes anemia of chronic disease, iron deficiency anemia, GI bleed etc. Initial workup will be conducted with hematologic labs. initial workup reviewed by me does indeed show a hemoglobin less than 8, and iron saturation of 11 chronic kidney disease but the remainder of her hematologic labs are nonactionable and my informal review of her chest x-ray shows no diffuse pulmonary edema does show cardiomegaly. Upon repeat evaluation patient actually has antibodies that have to go to the [facility] blood [place] for type and cross. Given this I had interactive discussion with the patient and her daughter about prescribing a unit of blood at the infusion center in the a.m. and via patient directed decision making they are agreeable with. Patient has no evidence or criteria for decompensation currently that would require admission to wait on the unit of blood. Therefore patient will be discharged home with follow-up in the a.m. at the infusion center for unit of packed red blood cells and then referral back to her PCP and administrative services coordinator. EKG personally interpreted by me. Atrial fibrillation with a rate of 71 bpm. No ischemic changes. I was consulted by the KARMEN, and we discussed the complexity of the problems being addressed. I approved the treatment and management plan for this patient's care in the Emergency Department, thus performing a substantive portion of the medical decision making. Jose Main, DO Critical Care <HENOK Salinas - Last Filed: 01/05/24 18:28> Critical Care Time Critical Care Time: No
--- OUTSIDE RECORDS SUMMARY | 2024-01-05 15:44 | XMS_ITS | Continuity of Care Document ---
Author Name Unknown Address [address] [place] [id number] Organization [facility] Phone Care Team Providers Care Floor Runner Name Role Phone ED RILEY Primary Care FORD POSADA Primary Attending FORD POSADA Unavailable FORD POSADA Admitting ALLERGIES AND ADVERSE REACTIONS ALLERGIES AND ADVERSE REACTIONS Code System Allergy Substance Adverse Reaction Date Reaction (Severity) Comment Status Reported By Updated By [id number] SNOMED CT PENICILLINS Adverse reaction to substance Not Specified active [id number] on June 30, 2023 7:33:05 PM [facility] 2670 RXNorm CODEINE Adverse reaction to substance Not Specified active [id number] on June 30, 2023 7:33:05 PM [facility] FAMILY HISTORY RELATION: Father Status: Cause of : Myocardial disease Age at : 50 SNOMED-CT Diagnosis Age At Onset Information not available RELATION: Mother Status: Cause of : Intracranial tumor Age at : 81 SNOMED-CT Diagnosis Age At Onset Information not available RESULTS Patient: DEBI CARTER Date of : [birth year] LABORATORY RESULTS ORDER 200: CBC AUTO NO DIFF HEMOGRAM (LOINC: 45829-4) ORDER DATE: January 01, 2024 3:04:00 PM [facility] Specimen Source: Whole Blood Specimen Type: Whole blood s ample PERFORMING LAB: [address] [id number] Result Comment: Final Result Date: January 01, 2024 3:28:00 PM [facility] (TECH: HC) LOINC TEST FLAG RESULT REFERENCE RANGE UPDA ELIO BY 6690-2 Leukocytes [#/volume] in Blood by Automated count N 9.1 10^3/uL 4.5 10^3/uL - 11.5 10^3/uL January 01, 2024 3:28:00 PM UTC (TECH: Storie) 789-8 Erythrocytes [#/volume] in Blood by Automated count L 2.83 10^6/uL 4.25 10^6/uL - 5.57 10^6/uL January 01, 2024 3:28:00 PM UTC (TECH: Storie) 718-7 Hemoglobin [Mass/volume] in Blood LL 7.1 g/dL 12.0 g/dL - 15.7 g/dL January 01, 2024 3:28:00 PM UTC (TECH: Storie) 89940-7 Hematocrit [Volume Fraction] of Blood LL 24.2 % 36.0 % - 47.0 % January 01, 2024 3:28:00 PM UTC (TECH: Storie) 787-2 Erythrocyte mean corpuscular volume [Entitic volume] by Automated count N 85.5 fl 80 fl - 95 fl January 01, 2024 3:28:00 PM UTC (TECH: Storie) 33024-0 Erythrocyte mean corpuscular hemoglobin [Entitic mass] in Blood from Fetus by Automated count L 25.1 pg 27.0 pg - 34.0 pg January 01, 2024 3:28:00 PM UTC (TECH: Storie) 34398-8 Erythrocyte mean corpuscular hemoglobin concentration [Mass/volume] in Blood from Fetus by Automated count L 29.3 g/dL 32.0 g/dL - 36.0 g/dL January 01, 2024 3:28:00 PM UTC (TECH: Storie) 97365-3 Platelets [#/volume] in Blood N 276 10^3/uL 150 10^3/uL - 450 10^3/uL January 01, 2024 3:28:00 PM UTC (TECH: Storie) 65942-4 Erythrocyte distribution width [Ratio] H 19.4 % 12.3 % - 15.1 % January 01, 2024 3:28:00 PM UTC (TECH: Storie) 44977-2 Platelet mean volume [Entitic volume] in Blood by Automated count N 10.2 fl 7.4 fl - 10.4 fl January 01, 2024 3:28:00 PM UTC (TECH: Storie) ORDER 400: RENAL FUNCTION PA JOHN (LOINC: 19842-9) ORDER DATE: January 01, 2024 3:04:00 PM UTC Specimen Source: Serum/Plasm a Specimen Type: Acellular blo od (serum or plasma) specimen PERFORMING LAB: [address] [id number] Result Comment: Final Result Date: January 01, [...] 01, 2024 4:10:00 PM UTC (TECH: MRB) 01103-6 Glomerular filtration rate/1.73 sq M.predicted by Creatinine-based formula (MDRD) L 32 mL/min >60 January 01, 2024 4:10:00 PM UTC (TECH: MRB) 1751-7 Albumin [Mass/volume] in Serum or Plasma N 3.8 g/dL 3.4 g/dL - 5.0 g/dL January 01, 2024 4:10:00 PM UTC (TECH: MRB) 82369-7 Calcium [Mass/volume] in Serum or Plasma N 9.3 mg/dL 8.5 mg/dL - 10.1 mg/dL January 01, 2024 4:10:00 PM UTC (TECH: MRB) 15898-8 Calcium [Mass/volume] corrected for total protein in [...] Specimen Type: Urine specime n PERFORMING LAB: [address] [id number] Result Comment: Final Result Date: January 01, [...] 600: UA AND MICRO/CULT IF INDICATED (LOINC: 17582-7) ORDER DATE: January 01, 2024 3:04:00 PM UTC Specimen Source: URINE Specimen Type: Urine specime n PERFORMING LAB: [address] [id number] Result Comment: Final Result Date: January 01, [...] 01, 2024 3:52:00 PM UTC (TECH: HC) 81730-5 Bilirubin.total [Mass/volume] in Urine by Automated test strip N NEGATIVE NEGATIVE December 31, 2 024 3:52:00 PM UTC (TECH: HC) 5797-6 Ketones [Mass/volume ] in Urine by Test strip N NEGATIVE NEGATIVE January 01, 2024 3:52:00 PM UTC (TECH: HC) 2965-2 Specific gravity of Urine N 1.010 1.005 - 1.035 January 01, 2024 3:52:00 PM UTC (TECH: HC) 34667-4 Erythrocytes [#/volu me] in Urine by Automated test strip N NEGATIVE NEGATIVE January 01, 2024 3:52:00 PM UTC (TECH: HC) 50500-2 pH of Urine by Autom ated test strip N 5.00 5.0 - 7.5 January 01, 2024 3:52:00 PM UTC (TECH: HC) 80043-3 Protein [Presence] i n Urine by Test strip N NEGATIVE NEGATIVE January 01, 2024 3:52:00 PM UTC (TECH: HC) 50135-3 Urobilinogen [Mass/volume] in Urine by Automated test strip N NORM NORMAL December 31, 2 024 3:52:00 PM UTC (TECH: HC) 88936-7 Nitrate [Presence] i n Urine N NEGATIVE NEGATIVE January 01, 2024 3:52:00 PM UTC (TECH: HC) 19022-3 Leukocytes [#/volume ] in Urine by Test strip N 100 (1+) /mcL NEGATIVE January 01, 2024 3:52:00 PM UTC (TECH: HC) 95413-7 Other elements in Ur ine sediment N CONTAMINATED January 01, 2024 3:52:00 PM [facility] (TECH: Storie) 73296-4 Microscopic observat ion [Identifier] in Urine sediment by Light microscopy N YES January 01, 2024 3:52:00 PM UTC (TECH: HC) 14441-5 Erythrocytes [#/area ] in Urine sediment by Microscopy high power field N NONE SEEN 0-3 January 01, 2024 3:52:00 PM UTC (TECH: HC) 5821-4 Leukocytes [#/area] in Urine sediment by Microscopy high power field 10-20 NONE SEEN January 01, 2024 3:52:00 PM UTC (TECH: HC) 65194-5 Epithelial cells.squamous [#/area] in Urine sediment by Microscopy high power field 10-20 NONE SEEN January 01, 2024 3:52:00 PM [facility] (TECH: HC) 5769-5 Bacteria [#/area] in Urine sediment by Microscopy high power field N TRACE NONE SEEN January 01, 2024 3:52:00 PM [facility] (TECH: Storie) 23168-6 Mucus [#/area] in Ur ine sediment by Microscopy low power field N NONE SEEN NONE SEEN January 01, 2024 3:52:00 PM UTC (TECH: Storie) 8246-1 Amorphous sediment [Presence] in Urine sediment by Light microscopy N NEGATIVE NONE SEEN January 01, 2024 3:52:00 PM [facility] (TECH: HC) LABORATORY NARRATIVE RESULTS Information is not available [...] Priority Start Date Ordering Physician Updated By 1988- LOINC Calcidiol [Mass/volume] in Serum or Plasma ONE TIME 0 Routine January 01, 2024 3:03:00 PM [facility] ALBINO Reed MD [id number] on January 01, 2024 3:04:00 PM [facility] 2731-8 LOINC Parathyrin.in tact [Mass/volume] in Serum or Efrem ONE TIME 0 Routine January 01, 2024 3:03:00 PM [facility] ALBINO Reed MD [id number] on January 01, 2024 3:04:00 PM [facility] SCHEDULED PROCEDURES Code System Description Status [...] Description Effective Dates Offered Cessation Comment UpdatedBy [id number] Historical Tobacco smoking status Former Smoker [id number] on July 01, 2018 6:05:19 PM [facility] [id number] Historical Tobacco smoking status Never Smoked Not Applicable [id number] on September 17, 2015 3:55:48 PM [facility] SOCIAL HISTORY - Gender Sex: Female [...] N18.4 Admission January 01, 2024 2:54:[address] [id number] Discharge January 01, 2024 2:54:00 PM [facility] DISCH ARGED TO HOME OR SELF CARE ENCOUNTER DIAGNOSES Notes information is not tamra ilable. Code System Diagnosis Onset Date Diagnosis information is not available. 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 Role on Team Status Start Date End Date Update d By ALBINO Reed MD Referring normal December 31 4:00:00 AM [facility] January 01, 2024 4:00:00 AM [facility] [id number] on January 01, 2024 2:56:53 PM [facility] ALBINO Reed MD Attending normal December 31 4:00:00 AM [facility] January 01, 2024 4:00:00 AM [facility] [id number] on January 01, 2024 2:56:53 PM [facility] ALBINO Reed MD Admitting normal December 31 4:00:00 AM [facility] January 01, 2024 4:00:00 AM [facility] [id number] on January 01, 2024 2:56:53 PM [facility] ROSEMARY ELLIOTT PCP normal January 01, 2024 4:00:00 AM [facility] January 01, 2024 4:00:00 AM [facility] [id number] on January 01, 2024 2:56:53 PM [facility]
[2024-01-05 16:19] LABS: Basophils % 0.2 % (0.1-2.0); Eosinophils # 0.2 K/mm3 (0.0-0.4); Eosinophils % 1.8 % (0.1-12.0); Hematocrit 24.9 % (37.0-47.0); Hemoglobin 7.3 g/dL (12.2-16.2); Lymphocytes # 1.5 K/mm3 (0.7-4.5); Lymphocytes % 15.6 % (10-50); Mean Corpuscular HGB Conc 29.4 g/dL (31.8-35.4); Mean Corpuscular Hemoglobin 25.8 pg (27.0-31.2); Mean Corpuscular Volume 87.8 fl (81-99); Monocytes # 0.5 K/mm3 (0.1-1.0); Monocytes % 5.4 % (1.7-9.3); Neutrophils # 7.5 K/mm3 (1.8-7.8); Neutrophils % 76.9 % (37.0-80.0); Platelet Count 268 K/mm3 (142-424); Red Blood Count 2.83 M/mm3 (4.20-5.40); Red Cell Distribution Width 19.6 % (11.5-17.5); White Blood Count 9.7 K/mm3 (4.8-10.8)
[2024-01-05 16:22] LABS: INR 1.13 (0.9-1.1); Prothrombin Time 12.1 seconds (10.1-12.5)
[2024-01-05 16:26] LABS: Chloride 104 mmol/L (98-107)
[2024-01-05 16:27] LABS: Potassium 4.2 mmoL/L (3.5-5.1); Sodium 138 mmol/L (136-145)
--- NOTE | 2024-01-05 16:27 | PC.NURSE ---
called records at [facility], asking for records from recent visit and labs. State they will send records.
[2024-01-05 16:29] LABS: Alanine Aminotransferase 31 U/L (12-78); Alkaline Phosphatase 98 U/L (38-126); Anion Gap 12.2 mEq/L (5-15); Aspartate Amino Transferase 31 U/L (14-36); Blood Urea Nitrogen 19 mg/dl (7-17); Carbon Dioxide 26 mmol/L (22.0-30.0); Creatinine Clearance Estimated 47 mL/min (50-200); Estimated Glomerular Filt Rate 39 ml/min (>60); GFR (African American) 47 ML/MIN (>60)
[2024-01-05 16:30] LABS: Albumin Level 3.9 g/dl (3.5-5.0); Albumin/Globulin Ratio 1.4 (1.1-1.8); Calcium 9.5 mg/dl (8.4-10.2); Globulin 2.7 g/dL (1.3-3.2); Glucose 107 mg/dl (74-100); Magnesium 1.7 mg/dl (1.6-2.3); Total Protein,Serum 6.6 g/dl (6.3-8.2)
--- NOTE | 2024-01-05 16:30 | XR_ITS ---
PROCEDURE INFORMATION: Exam: XR Chest Exam date and time: 01/05/2024 4:32 PM Age: 88 years old Clinical indication: Other: Anemia TECHNIQUE: Imaging protocol: Radiologic exam of the chest. Views: 1 view. COMPARISON: No relevant prior studies available. FINDINGS: Lungs: See Heart/Mediastinum finding. Pleural spaces: Small to moderate right pleural effusion. Heart/Mediastinum: There is moderate cardiomegaly with interstitial edema. Vasculature: There are calcifications of the aortic arch. Bones/joints: No evidence of acute osseous abnormalities within the visualized portions of the thoracic spine and ribs. Osseous structures appear appropriate for patient age. IMPRESSION: 1. Small to moderate right pleural effusion. 2. There is moderate cardiomegaly with interstitial edema.
[2024-01-05 16:31] VITALS: BP 128/58; PULSE 71; O2SAT 96
[2024-01-05 16:44] LABS: Iron 40 ug/dL (37-170)
--- NOTE | 2024-01-05 16:49 | ECG_ITS ---
APPROVED REPORT Exam: Resting ECG HR:71 bpm ECG Measurements Heart Rate 71 AXES QRSd 117 QRS 62 QT 286 T 162 QTc 309 Conclusion ATRIAL FIBRILLATION MODERATE INTRAVENTRICULAR CONDUCTION DELAY [110+ ms QRS DURATION] NONSPECIFIC ST & T-WAVE ABNORMALITY ABNORMAL ECG UNCONFIRMED REPORT Electronically signed by : NAPOLEON HASSAN, 01/05/2024 23:49:59
[2024-01-05 16:53] LABS: Total Iron Binding Capacity 342 ug/dL (265-497)
[2024-01-05 17:01] VITALS: BP 127/61; PULSE 75; O2SAT 95
[2024-01-05 17:01] LABS: Troponin I < 0.01 ng/ml (0.00-0.034)
[2024-01-05 17:31] VITALS: BP 130/59; PULSE 70; O2SAT 96
--- NOTE | 2024-01-05 17:48 | PC.NURSE ---
Lab called they have to send blood work out for cross match to [facility]
[2024-01-05 18:00] VITALS: BP 142/78; PULSE 81; RESP 20; TEMP 37.1; O2SAT 94
[2024-01-05 18:29] VITALS: BP 140/75; PULSE 76; RESP 18; TEMP 37.1; O2SAT 97
== END 2024-01-05 18:32 | disposition home or self-care (01) ==
PROVIDERS: Physician Assistant; Emergency Provider Emergency Medicine
DX: D63.1 Anemia in chronic kidney disease (principal); N18.9 Chronic kidney disease, unspecified; D50.9 Iron deficiency anemia, unspecified; I48.91 Unspecified atrial fibrillation; Z87.891 Personal history of nicotine dependence
CPT/HCPCS: 36415; 71045; 80053; 83540; 83550; 83735; 84484; 85025; 85610; 86850; 86870; 93005; 96360; 96361; 99284

== ENCOUNTER 2024-01-06 11:19 | Outpatient (CLI) | payer MEDICARE, MEDICAID, SELFPAY ==
[2024-01-06] VITALS (10 sets, daily range): BP systolic 115–142; BP diastolic 55–74; PULSE 72–82; RESP 17–19; TEMP 36.7–36.9; O2SAT 96–98; BMI 37.9
[2024-01-06] MEDS: 0.9 % SODIUM CHLORIDE 250 ML 25 ML IV (11:45)
[2024-01-06 11:47] LABS: Basophils % 0.3 % (0.1-2.0); Eosinophils # 0.2 K/mm3 (0.0-0.4); Eosinophils % 2.2 % (0.1-12.0); Hemoglobin 7.1 g/dL (12.2-16.2); Lymphocytes # 1.5 K/mm3 (0.7-4.5); Lymphocytes % 16.7 % (10-50); Mean Corpuscular HGB Conc 29.7 g/dL (31.8-35.4); Mean Corpuscular Hemoglobin 25.7 pg (27.0-31.2); Mean Corpuscular Volume 86.7 fl (81-99); Mean Platelet Volume 8.6 fl (7.4-10.4); Monocytes # 0.5 K/mm3 (0.1-1.0); Monocytes % 5.9 % (1.7-9.3); Neutrophils # 6.6 K/mm3 (1.8-7.8); Neutrophils % 74.9 % (37.0-80.0); Platelet Count 262 K/mm3 (142-424); Red Blood Count 2.77 M/mm3 (4.20-5.40); Red Cell Distribution Width 19.7 % (11.5-17.5); White Blood Count 8.8 K/mm3 (4.8-10.8)
== END 2024-01-06 13:40 | disposition home or self-care (01) ==
PROVIDERS: PCP Nurse Practitioner Family; Visit Provider Emergency Medicine
DX: D64.89 Other specified anemias (principal); N18.9 Chronic kidney disease, unspecified; D50.9 Iron deficiency anemia, unspecified
CPT/HCPCS: 36430; 85025; P9016

== ENCOUNTER 2024-03-26 10:44 | Outpatient (POV) | payer MEDICARE, MEDICAID, SELFPAY | END 2024-03-26 23:59 | disposition home or self-care (01) | LOC: SC 10:44 | PROVIDERS: Visit Provider Internal Medicine Nephrology | DX: Z00.00 Encounter for general adult medical examination without abnormal findings (principal) ==